=== PATIENT | female | born 1930 | race Caucasian/White ===

== ENCOUNTER 2019-12-11 17:46 | Observation (INO) ==
[2019-12-11 19:04] LABS: ABS Basophils 0.1 10^3/ul (0-0.2); ABS Eosinophils 0.3 10^3/ul (0-0.6); ABS Lymphocytes 1.4 10^3/ul (1.0-4.8); ABS Monocytes 0.6 10^3/ul (0-0.8); ABS Neutrophils 5.4 10^3/ul (1.5-7.7); Eosinophil % 3.4 %; Hematocrit 41 % (35-47); Hemoglobin 13.6 g/dL (12.0-16.0); Lymphocyte % 18.2 %; Mean Corpuscular HGB Conc 33 g/dL (31-36); Mean Corpuscular Hemoglobin 29 pg (27-31); Mean Corpuscular Volume 89 fL (80-97); Mean Platelet Volume 11.3 fL (7.4-10.4); Platelet Count 137 10^3/uL (150-450); Red Blood Count 4.64 10^6 /uL (3.70-4.87); Red Cell Distribution Width 14 % (10-15); White Blood Count 7.7 10^3/uL (3.5-10.8)
[2019-12-11 19:23] LABS: Albumin 4.2 g/dL (3.2-5.2); Albumin/Globulin Ratio 1.3 (1-3); BUN/Creatinine Ratio 44.2 (8-20); Calcium 9.3 mg/dL (8.6-10.3); EGFR African American 75.2 (>60); EGFR Non-African American 62.1 (>60); Globulin 3.2 g/dL (2-4); Potassium 4.2 mmol/L (3.5-5.0); Total Bilirubin 0.4 mg/dL (0.2-1.0); Total Protein 7.4 g/dL (6.4-8.9)
[2019-12-11 20:44] LABS: HDL Cholesterol 45.9 mg/dL; Magnesium 2.2 mg/dL (1.9-2.7)
[2019-12-12 09:44] VITALS: BP 174/93
== END 2019-12-12 11:21 | disposition home or self-care (01) ==
LOC: MEDTELE 17:46 → ED 17:46 → MEDTELE 22:29
PROVIDERS: ADMIT Internal Medicine; ATTEND Internal Medicine